=== PATIENT | male | born 1980 | race Caucasian/White ===

== ENCOUNTER 2017-03-11 18:23 | Emergency (ER) | payer SELFPAY ==
[~2017-03-11] VITALS: Ht 157.5 cm; Wt 68.5 kg
[2017-03-11 18:37] VITALS: Ht 157.5 cm; Wt 68.5 kg
[2017-03-11] MEDS ORDERED: SOD CHLORIDE 0.9% 1,000 ML IV STA (21:01)
[2017-03-11] MEDS ORDERED: HYDROmorphONE 1 MG/ML SYG IV STA ×2 (21:01→23:04)
[2017-03-11] MEDS ORDERED: KETOROLAC 15 MG INJ IV STA (21:01)
[2017-03-11] MEDS ORDERED: ONDANSETRON 4 MG INJ IV STA (21:01)
[2017-03-11 21:39] LABS: BASOPHILS % 0.3 % (0.0-2.0); EOSINOPHILS # 0.1 10^3/ul (0.0-0.5); EOSINOPHILS % 0.4 % (0.0-7.0); HEMATOCRIT 46.4 % (42.0-52.0); HEMOGLOBIN 16.9 g/dl (14.0-18.0); LYMPHOCYTES # 2.2 10^3/ul (0.8-2.9); LYMPHOCYTES % 17.4 % (15.0-51.0); MEAN CORPUSCULAR HEMOGLOBIN 32.8 pg (29.0-33.0); MEAN CORPUSCULAR HGB CONC 36.4 g/dl (32.0-37.0); MEAN CORPUSCULAR VOLUME 89.9 fl (82.0-101.0); MEAN PLATELET VOLUME 10.9 fl (7.4-10.4); MONOCYTES % 7.5 % (0.0-11.0); PLATELET COUNT 252 10^3/UL (140-415); RED BLOOD COUNT 5.16 10^6/ul (4.70-6.10); WHITE BLOOD COUNT 12.9 10^3/ul (4.8-10.8)
[2017-03-11 21:59] LABS: ALBUMIN 4.8 g/dl (3.3-4.9); ALBUMIN/GLOBULIN RATIO 1.2; BILIRUBIN,INDIRECT 0.3 mg/dl (0-1.1); BILIRUBIN,TOTAL 0.3 mg/dl (0.2-1.3); CALCIUM 9.5 mg/dl (8.4-10.2); CREATININE 0.91 mg/dl (0.61-1.24); POTASSIUM 3.6 mmol/L (3.5-5.1); TOTAL PROTEIN 8.8 g/dl (6.1-8.1)
[2017-03-11 22:01] LABS: ADD UMIC YES; UR ASCORBIC ACID NEGATIVE (NEGATIVE); UR BILIRUBIN (Dip) NEGATIVE (NEGATIVE); UR BLOOD (Dip) 3+ mg/dL (NEGATIVE); UR CLARITY SLIGHTLY CLOUDY (CLEAR); UR COLOR YELLOW (YELLOW); UR GLUCOSE (Dip) NEGATIVE (NEGATIVE); UR KETONES (Dip) NEGATIVE (NEGATIVE); UR LEUKOCYTE ESTERASE (Dip) NEGATIVE Leu/ul (NEGATIVE); UR MUCUS MODERATE /HPF (NONE SEEN); UR NITRITE (Dip) NEGATIVE (NEGATIVE); UR RBC > 182 /HPF (0-5); UR SPECIFIC GRAVITY (Dip) 1.021 (1.003-1.030); UR TOTAL PROTEIN (Dip) 1+ mg/dl (NEGATIVE); UR UROBILINOGEN (Dip) 1+ mg/dL (NEGATIVE)
--- NOTE | 2017-03-11 23:00 | RADRPT ---
PROCEDURE: CT ABDOMEN/PELVIS WITHOUT CONTRAST CLINICAL INDICATION: 36-year-old male with right flank pain. TECHNIQUE: The study was performed utilizing a [employer] VCT 64-slice CT scanner. Direct axia l sections were obtained through the abdomen and pelvis without the use of intravenous contrast mate rial. Sagittal and coronal reformations were obtained. One or more of the following dose reduction t echniques were utilized: automated exposure control, adjustment of the mA and/or kV according to pat ient's size or use of iterative reconstruction technique. The images were reviewed on a PACS workst [email or web address]. CTD/vol = 7.7 mGy; Total Exam DLP = 442.8 mGy-cm. COMPARISON: None. FINDINGS: The lung bases are unremarkable. There is no evidence for significant pleural effusion. The liver has a normal size and contour. There is diffuse decreased density throughout the liver consistent w ith fatty infiltration but without focal areas of abnormal density. No intrahepatic nor extrahepatic biliary ductal dilatation is seen. The gallbladder demonstrates no wall thickening nor pericholecys tic fluid. No biliary stones are evident. The pancreas is without areas of abnormal attenuation. Th e spleen is identified and has a normal size with a small punctate medial calculus on axial image 3- 47. The adrenal glands are unremarkable. There is minimal prominence of the right renal collecting s ystem but without evidence for significant hydroureteronephrosis however there is a calculus identif ied within the distal right ureter on axial image 3-155 measuring approximately 3 x 3 mm. The left kidney is without evidence for abnormal density, calculi or obstructive uropathy. The urinary bladder contains minimal urine. There is no evidence for bowel obstruction. The appendix is visuali zed and is without abnormal thickening or surrounding inflammatory reaction. There is no significant free fluid. The prostate is not enlarged. The aortoiliac vessels are without aneurysmal dilatation . The osseous structures are intact. IMPRESSION: 1. Minimal prominence of the right renal collecting system but without dean obstructive uropathy h owever there is a 3 x 3 mm calculus within the distal right ureter. Clinical correlation is necess gregorio. 2. Hepatic steatosis. 3. No CT evidence for appendicitis. .Gerald Noonan MD, Date Time Electronically viewed and signed by .Gerald Noonan MD, on 03/11/2017 22:59 .M/
[2017-03-11] MEDS ORDERED: HYDR-902 PO (23:07)
[2017-03-11] MEDS ORDERED: NAPR-688 PO (23:07)
--- NOTE | 2017-03-11 23:22 | ERD ---
ER Documentation Chief Complaint Date/Time DATE: 03/11/17 TIME: 23:19 Chief Complaint RIGHT SIDED FLANK PAIN, NAUSEA, VOMITING X 1 DAY HPI This is a 36-year-old male presenting to the emergency department with severe right-sided flank pain that radiates to his abdomen for the past day. Patient states that he has nausea and a couple episodes of vomiting. He denies any diarrhea, constipation or past abdominal surgeries. He denies fever. He denies taking any medications for this ROS All systems reviewed and are negative except as per history of present illness. Medications Home Meds Active Scripts Naproxen* (Naproxen*) 500 Mg Tablet, 500 MG PO BID, #30 TAB Prov:CONNOR LITTLE PA-C 03/11/17 Hydrocodone/Acetaminophen ([place] 10-325 Tablet) 1 Each Tablet, 1 TAB PO Q6H Y for PAIN, #20 TAB Prov:CONNOR LITTLE PA-C 03/11/17 PMhx/Soc Medical and Surgical Hx: pt denies Medical Hx, pt denies Surgical Hx Hx Alcohol Use: No Hx Substance Use: No Hx Tobacco Use: No Smoking Status: Never smoker Physical Exam Vitals Vital Signs Date Time Temp Pulse Resp B/P Pulse Ox O2 Delivery O2 Flow Rate FiO2 03/11/17 18:37 99.8 108 18 127/90 99 Physical Exam GENERAL: well-developed/well-nourished, in no apparent distress, non-toxic appearing HENT: NC/AT, moist mucous membranes EYES: Conjunctiva normal NECK: Supple, no lymphadenopathy PULM: CTA bilaterally, no rales, rhonchi, or wheezing heard CV: Normal S1S2, RRR, good capillary refill GI: Soft, non-distended, tender to palpation rifht sbdome Normal bowel sounds, no masses or organomegaly felt on exam No gross peritonitis, no bruits Negative Rovsing, negative [place], negative McBurney's point, Negative CVAT BACK: No masses EXT: No clubbing, cyanosis, or edema NEURO: Alert and Orientated SKIN: Intact, normal turgor PSYCH: Normal mood and mentation Result Diagram: 03/11/17211903/11/172119 Results 24 hrs Laboratory Tests Test 03/11/17 21:20 White Blood Count 12.910^3/ul Red Blood Count 5.1610^6/ul Hemoglobin 16.9g/dl Hematocrit 46.4% Mean Corpuscular Volume 89.9fl Mean Corpuscular Hemoglobin 32.8pg Mean Corpuscular Hemoglobin Concent 36.4g/dl Red Cell Distribution Width 12.0% Platelet Count 08032^3/UL Mean Platelet Volume 10.9fl Neutrophils % 74.0% Lymphocytes % 17.4% Monocytes % 7.5% Eosinophils % 0.4% Basophils % 0.3% Nucleated Red Blood Cells % 0.0/100WBC Neutrophils # (Manual) 9.510^3/ul Lymphocytes # 2.210^3/ul Monocytes # 1.010^3/ul Eosinophils # 0.110^3/ul Basophils # 0.010^3/ul Nucleated Red Blood Cells # 0.010^3/ul Urine Color YELLOW Urine Clarity SLIGHTLY CLOUDY Urine pH 5.0 Urine Specific [place] 1.021 Urine Ketones NEGATIVEmg/dL Urine Nitrite NEGATIVEmg/dL Urine Bilirubin NEGATIVEmg/dL Urine Urobilinogen 1+mg/dL Urine Leukocyte Esterase NEGATIVELeu/ul Urine Microscopic RBC > 182/HPF Urine Microscopic WBC 6/HPF Urine Mucus MODERATE/HPF Urine Hemoglobin 3+mg/dL Urine Glucose NEGATIVEmg/dL Urine Total Protein 1+mg/dl Sodium Level 147mmol/L Potassium Level 3.6mmol/L Chloride Level 101mmol/L Carbon Dioxide Level 28mmol/L Anion Gap 22 Blood Urea Nitrogen 11mg/dl Creatinine 0.91mg/dl Glucose Level 113mg/dl Calcium Level 9.5mg/dl Total Bilirubin 0.3mg/dl Direct Bilirubin 0.00mg/dl Indirect Bilirubin 0.3mg/dl Aspartate Amino Transf (AST/SGOT) 38IU/L Alanine Aminotransferase (ALT/SGPT) 106IU/L Alkaline Phosphatase 115IU/L Total Protein 8.8g/dl Albumin 4.8g/dl Globulin 4.00g/dl Albumin/Globulin Ratio 1.20 Lipase 20U/L Current Medications Medications (Trade) Dose Ordered Sig/Octavio Route PRN Reason Start Time Stop Time Status Last Admin Dose Admin Sodium Chloride (NS) 1,000 ml @ 1,000 mls/hr Q1H STAT IV 03/11/17 21:01 03/11/17 22:00 DC 8/28/17 21:20 Hydromorphone HCl (Dilaudid) 1 mg ONCE STAT IV 03/11/17 21:01 03/11/17 21:03 DC 03/11/17 21:19 Ondansetron HCl (Zofran Inj) 4 mg ONCE STAT IV 03/11/17 21:01 03/11/17 21:03 DC 03/11/17 21:19 Ketorolac Tromethamine (Toradol) 15 mg ONCE STAT IV 03/11/17 21:01 03/11/17 21:03 DC 03/11/17 21:20 Hydromorphone HCl (Dilaudid) 1 mg ONCE STAT IV 03/11/17 23:04 03/11/17 23:05 DC 03/11/17 23:12 Procedures/MDM This is a 36-year-old male presenting to the emergency department with signs and symptoms most consistent with a nephrolithiasis. Patient is stable to be discharged home, there was no evidence of obstruction or infection. Pain was stabilized in the ED. Prescription for [place] and naproxen was provided. Discussed return to the ER for worsening symptoms. He understands and agrees with plan In the ED, IV access established. Patient was given 1 L fluids. His pain was controlled with Dilaudid, Zofran. Lab work was drawn. CBC did not show any evidence of anemia. Patient had mild leukocytosis. CMP did not show any evidence of renal, liver, or electrolyte abnormalities. Lipase was normal. UA did not show urinary tract infection. CT abd & pelvis without contrast 1. Minimal prominence of the right renal collecting system but without dean obstructive uropathy however there is a 3 x 3 mm calculus within the distal right ureter. Clinical correlation is necessary. 2. Hepatic steatosis. 3. No CT evidence for appendicitis. Departure Diagnosis: Primary Impression: Nephrolithiasis Condition: Stable Patient Instructions: Understanding Kidney Stones, Kidney Stone W/ Colic, Kidney Stone (Urine) Additional Instructions: Visite a luis pao kwan para un EXAMEN.Regrese a estas instalaciones si no se mejora jose esperbamos o jose le dijimos. [place] toda la medicina jm y jose se le indic. La medicina que se le recet puede causarle sueo.NO DEBE MANEJAR NI OPERAR MAQUINARIAS PELIGROSAS mientras esta tomando esta medicina! Visite a luis mdico maana para un EXAMEN.Regrese a estas instalaciones si no se mejora jose esperbamos o jose le dijimos. CONNOR LITTLE PA-C Mar 11, 2017 23:22
[2017-03-11 23:54] VITALS: BP 138/90; PULSE 69; RESP 18; TEMP 98.9
== END 2017-03-11 23:55 | disposition home or self-care (01) ==
LOC: FTE 18:23
DX: N20.0 Calculus of kidney (principal)
CPT/HCPCS: 36415; 74176; 80053; 81001; 83690; 85025; 96374; 96375; 99285; J1170; J1885; J2405; J7030